=== PATIENT | female | born 1950 | race Caucasian/White ===

== ENCOUNTER → 2023-06-21 | Outpatient (CLI) | payer MEDICARE ==
[2023-06-21 12:05] LABS: Basophils # (A) 0.1 k/uL (0-0.2); Basophils % (A) 1 %; Eosinophils # (A) 0.1 k/uL (0-0.7); Eosinophils % (A) 2 %; HCT 41.2 % (34.0-46.0); HGB 13.7 gm/dL (11.4-16.0); Lymphocytes # (A) 1.3 k/uL (1.0-4.8); Lymphocytes % (A) 23 %; MCH 31.5 pg (25.0-35.0); MCHC 33.2 g/dL (31.0-37.0); MCV 94.8 fL (80.0-100.0); Mean Platelet Volume 8.1; Monocytes # (A) 0.5 k/uL (0-1.0); Monocytes % (A) 8 %; Neutrophils # (A) 3.6 k/uL (1.3-7.7); Neutrophils % (A) 64 %; Platelet Count 210 k/uL (150-450); RBC 4.34 m/uL (3.80-5.40); WBC 5.7 k/uL (3.8-10.6)
[2023-06-21 15:35] LABS: Blood Urea Nitrogen 20.4 mg/dL (9.0-27.0); Calcium 9.8 mg/dL (8.7-10.3); Carbon Dioxide 26.8 mmol/L (21.6-31.8); Chloride 101 mmol/L (96-109); Glucose 88 mg/dL (70-110); Potassium 4.2 mmol/L (3.5-5.5); Sodium 139 mmol/L (135-145)
== END | disposition home or self-care (01) ==
LOC: LABPAT 09:25
PROVIDERS: ATTEND Internal Medicine
DX: Z01.812 Encounter for preprocedural laboratory examination (principal)
CPT/HCPCS: 80048; 85025; 85610; 85730

== ENCOUNTER → 2023-12-24 | Outpatient (CLI) | payer MEDICARE ==
[2023-12-24 14:27] LABS: Basophils # (A) 0.06 X 10*3/uL (0.00-0.10); Basophils % (A) 0.9 %; Eosinophils # (A) 0.15 X 10*3/uL (0.04-0.35); Eosinophils % (A) 2.2 %; HGB 14.5 g/dL (12.0-15.0); Lymphocytes # (A) 2.06 X 10*3/uL (0.90-5.00); Lymphocytes % (A) 30.8 %; MCH 30.3 pg (27.0-32.0); MCV 91.9 FL (80.0-97.0); Mean Platelet Volume 10.5 FL (9.5-12.2); Monocytes # (A) 0.57 X 10*3/uL (0.20-1.00); Monocytes % (A) 8.5 %; NRBC Per 100 WBC 0 X 10*3/uL (0.00-0.01); Neutrophils # (A) 3.81 X 10*3/uL (1.80-7.70); Neutrophils % (A) 57.2 %; Platelet Count 247 X 10*3/uL (140-440); RBC 4.79 X 10*6/uL (4.10-5.20); WBC 6.68 X 10*3/uL (4.50-10.00)
[2023-12-24 14:36] LABS: BUN/Creat Ratio 26.14 Ratio (12.00-20.00); Blood Urea Nitrogen 18.3 mg/dL (9.0-27.0); Carbon Dioxide 26.8 mmol/L (21.6-31.8); Chloride 103 mmol/L (96-109); Glucose 95 mg/dL (70-110); Sodium 142 mmol/L (135-145)
[2023-12-24 14:37] LABS: Calcium 10.4 mg/dL (8.7-10.3)
[2023-12-24 15:29] LABS: INR 1.01 sec (0.93-1.11); Prothrombin Time 10.9 sec (9.9-11.9)
== END | disposition home or self-care (01) ==
LOC: LABPAT 08:22
PROVIDERS: ATTEND Orthopaedic Surgery
DX: M17.12 Unilateral primary osteoarthritis, left knee (principal); Z01.818 Encounter for other preprocedural examination
CPT/HCPCS: 80048; 85025; 85610; 87070

== ENCOUNTER 2024-01-14 10:36 | Day surgery (SDC) | payer MEDICARE ==
--- NOTE | 2024-01-13 11:32 | HP ---
HISTORY AND PHYSICAL DATE OF SCHEDULED SURGERY: 01/14/2024. HISTORY OF PRESENT ILLNESS: Tonia Wheeler is a 73-year-old patient seen with symptomatic left knee osteoarthritis. We discussed options regarding treatment. She elected to proceed with left total knee arthroplasty. Consent regarding the procedure was obtained. Preoperative cardiac clearance was provided. The patient's primary care physician is . PAST MEDICAL HISTORY: Cardiovascular disease, hypertension, hyperlipidemia. PAST SURGICAL HISTORY: Right total hip arthroplasty. DAILY MEDICATIONS: 1. Simvastatin. 2. Aleve. 3. Lisinopril/hydrochlorothiazide. 4. Metoprolol. ALLERGIES: None. SOCIAL HISTORY: She denies tobacco use. PHYSICAL EVALUATION OF THE LEFT KNEE: Range of motion is negative 3 to 100 degrees. She has a large effusion. Tenderness along the medial joint line. Crepitance along the medial patellofemoral compartments with range of motion. Pain with patellofemoral compression. Ligaments stable. Hip rotation without pain. Distal neurovascular exam is intact. IMAGING STUDIES: Radiographs of the left knee revealed severe osteoarthritic changes. IMPRESSION: 1. Left knee osteoarthritis. 2. Hypertension. 3. Hyperlipidemia. 4. Cardiovascular disease. PLAN: Left total knee arthroplasty. MMODL / IJN: [id number] /
[~2024-01-14 10:36] MED LIST: HYDROmorphone 0.5 MG/0.5 ML SYRINGE IVP PRN; LIDOCAINE 1% (10MG/ML) FOR IV START INTRADERMA PRN; MIDAZOLAM 2 MG/2 ML VIAL IV PRN; TRANEXAMIC 1,000 MG/100ML-NACL 1,000 MG in SALINE 1 100ML.BAG IVPB PRN
[2024-01-14] MEDS: LACTATED RINGERS 1,000 ML IV ONE ×2 (11:36→14:14)
[2024-01-14] MEDS: ACETAMINOPHEN TAB 500 MG TAB PO PRN (11:38)
[2024-01-14] MEDS: MELOXICAM 7.5 MG TAB PO PRN (11:39)
[2024-01-14] MEDS: DEXAMETHASONE SOD PHOSPHATE 4 MG/ML 1 ML VIAL IV ONE (11:40)
[2024-01-14] MEDS: LACTATED RINGERS 1,000 ML IV SCH (11:40)
[2024-01-14] MEDS: ONDANSETRON 4 MG/2 ML VIAL IVP ONE (11:40)
[2024-01-14] MEDS: MIDAZOLAM 2 MG/2 ML VIAL IVP ONE (12:39)
[2024-01-14] MEDS: ceFAZolin 1,000 MG in SODIUM CHLORIDE 0.9% 1,000 ML IRRIGATION ONE (13:34)
[2024-01-14] MEDS ORDERED: HYDROmorphone 0.5 MG/0.5 ML SYRINGE IVP PRN ×3 (14:53)
[2024-01-14] MEDS ORDERED: NALOXONE 0.4 MG/ML 1 ML VIAL IV PRN (14:53)
--- NOTE | 2024-01-14 14:53 | P.OP ---
Date of Procedure: 01/14/24 Preoperative Diagnosis: Left knee osteoarthritis Postoperative Diagnosis: Left knee osteoarthritis Procedure(s) Performed: Left total knee arthroplasty Implants: 1. DePuy attune size 6 narrow left cruciate retaining cemented femur 2. DePuy attune size 6 fixed-bearing cemented tibial baseplate 3. DePuy attune size 6 fixed-bearing cruciate retaining 10 mm polyethylene tibial insert 4. DePuy attune 35 mm all polyethylene cemented patella Anesthesia: regional (Adductor canal catheter, iPAQ block), spinal Surgeon: Barry Mcneil Carbon Plant Grinder #1: Sloan Garcia Estimated Blood Loss (ml): 50 Pathology: none sent Condition: stable Disposition: PACU Indications for Procedure: 73-year-old patient seen with symptomatic left knee osteoarthritis. After having treatment options discussed, she elected to proceed with total knee arthroplasty. Operative Findings: See description of procedure Description of Procedure: Patient was taken to the operative suite after having an adductor canal catheter placed by the department of anesthesia. Patient underwent a spinal anesthetic by the department of anesthesia. Patient was given preoperative IV intake antibiotics and TXA. A well-padded tourniquet was placed about the left lower extremity. The lower extremity was then prepped and draped in the normal sterile orthopedic fashion. The extremity was elevated, a tourniquet was insufflated to 300. A standard anterior incision was made sharply through skin. Dissection was taken down through the subcutaneous soft tissues down to the extensor mechanism. A medial arthrotomy was performed, patella was everted and knee was flexed. There was advanced osteoarthritis noted. I introduced my distal intramedullary femoral drill. I then introduced the distal femoral cutt ing jig. Cristo SPEARS secured the cutting jig with 2 pins. I held retractors in position while Cristo SPEARS performed the distal femoral resection through the guide area we now removed her distal femoral cutting guide. We now placed our 4-in-1 femoral cutting block and positioned and it was secured with 2 pins by Cristo SPEARS while I held the block in position. The distal femoral finishing was now completed. A proximal tibial cutting guide was positioned. I held the guide in the appropriate position with both hands well Cristo SPEARS inserted stabilizing pins into the guide. Proximal tibial cut was made. We now placed a trial femoral component into position, along with an appropriate size tibial tray and insert. We now took the knee through range of motion and had full extension good flexion and good overall soft tissue balance noted. The patella was everted and stabilized with 2 towel clips held by Cristo SPEARS while I performed a flush with patellar quad tendon utilizing a fresh sawblade. We templated the patella, appropriate drill holes were made. An appropriate trial patella was positioned, knee was taken through full range of motion with the patella tracking very nicely. The trial patella was removed. Drill holes were made through the femoral component. All trial components were removed after marking off the appropriate rotation of the tibia. Retractors were now positioned along the proximal tibia. An appropriate keel punch was made with the appropriate size tibial guide by myself on Cristo SPEARS assisted by holding retractors. At this point appropriate size implants were chosen and opened. The joint was irrigated copiously with pulse lavage mechanical irrigation. The wound was irrigated with pulse lavage mechanical irrigation. We mixed antibiotic methylmethacrylate. We placed the knee into flexion. We placed multiple retractors assisted by Cristo SPEARS to expose the proximal tibia. Once the methyl methacrylate was ready, the tibial component was cemented into place removing any excess methylmethacrylate form by both myself and Cristo SPEARS. The femoral component was cemented into place removing the removing any excess methylmethacrylate performed by both myself and Cristo SPEARS. We then inserted the appropriate size polyethylene tibial insert. We made sure that it was locked into position. We took the knee into full extension, and then back in a flexion making sure we had removed any excess methylmethacrylate. The patellar component was then cemented down and secured with clamp. Excess methylmethacrylate removed. We kept the knee in full extension, patellar clamp in position until methylmethacrylate had hardened. Once it had hardened the patellar clamp was removed. The knee was taken through full range of motion. The patella tracked nicely. There was good soft tissue balancing. The tourniquet was now released. Additional hemostasis was achieved via electrocautery. A second gram of TXA was given. The wound again was irrigated with pulse lavage mechanical irrigation. The extensor mechanism was repaired with Ethibond suture. We checked the repair with range of motion and it was stable. The subcutaneous soft tissues were repaired with Vicryl in layers. The skin was approximated with pernio/Dermabond. Sterile dressings were applied followed by loose web roll and Brian bandage. The patient was transferred to a bed, and taken to recovery in stable and satisfactory condition. Cristo SPEARS assisted with this complex procedure.
[2024-01-14] MEDS: ROPIVACAINE 1,100 MG, SODIUM CHLORIDE 0.9% 500 ML 330 ML, EMPTY PAIN BALL 1 EACH MISCELLANE PRN (15:37)
--- NOTE | 2024-01-14 17:00 | XR ---
EXAMINATION TYPE: XR knee limited LT DATE OF EXAM: 01/14/2024 COMPARISON: None HISTORY: Postknee replacement TECHNIQUE: 2 view left knee FINDINGS: Tibial femoral component place. Postsurgical soft tissue changes are present. No acute frac tures are evident. IMPRESSION: 1. No acute fractures post knee replacement
[2024-01-14] MEDS: ONDANSETRON 4 MG/2 ML VIAL IVP PRN (20:01)
[2024-01-14] MEDS: SENNOSIDES-DOCUSATE SODIUM 1 EACH TAB PO SCH (21:06)
[2024-01-14] MEDS: ATORVASTATIN 10 MG TAB PO SCH (21:06)
[2024-01-14] MEDS: METOPROLOL SUCCINATE (ER) 25 MG TAB.ER.24H PO SCH (21:06)
[2024-01-14] MEDS: CALCIUM CARBONATE 500 MG CHEWABLE PO SCH (21:06)
[2024-01-14] MEDS: SODIUM CHLORIDE 0.9% 1,000 ML IV SCH (21:07)
[2024-01-14] MEDS: HYDROcodone/APAP 5-325MG 1 EACH TAB PO PRN (23:17)
[2024-01-15 02:46] VITALS: PULSE 60; RESP 18
[2024-01-15] MEDS: ENOXAPARIN 30 MG/0.3 ML SYRINGE SQ SCH (06:31)
[2024-01-15] MEDS: HYDROcodone/APAP 5-325MG 1 EACH TAB PO PRN (06:31)
[2024-01-15 07:31] VITALS: BP 124/69; TEMP 98.2
--- NOTE | 2024-01-15 07:33 | P.ANPRN ---
Procedure Note - Anesthesia - Nerve Block Performed Left Adductor Canal Infusion Time Out Performed: Yes Date of Procedure: 01/14/24 Procedure Start Time: 12:39 Procedure Stop Time: 12:48 Location of Patient: PreOp Indication: Acute Post-Operative Pain, Requested by Surgeon Sedation Type: Sedate with meaningful contact maintained Preparation: Sterile Prep, Sterile Dressing Position: Supine Catheter: Indwelling Needle Types: Pajunk Needle Gauge: 21 Ultrasound used to visualize needle placement: Yes Ultrasound used to observe medication spread: Yes Blood Aspirated: No Pain Paresthesia on Injection Noted: No Resistance on Injection: Normal Image Stored and Saved: Yes Events: Uneventful and Well Tolerated (Ropivacaine 0.5% 20 cc plus dexamethasone 4 mg)
--- NOTE | 2024-01-15 07:35 | P.ANPRN ---
Procedure Note - Anesthesia - Nerve Block Performed Left iPack Single Time Out Performed: Yes Date of Procedure: 01/14/24 Procedure Start Time: 12:49 Procedure Stop Time: 12:52 Location of Patient: PreOp Indication: Acute Post-Operative Pain, Requested by Surgeon Sedation Type: Sedate with meaningful contact maintained Preparation: Sterile Prep Position: Supine Needle Types: Pajunk Needle Gauge: 21 Ultrasound used to visualize needle placement: Yes Ultrasound used to observe medication spread: Yes Blood Aspirated: No Pain Paresthesia on Injection Noted: No Resistance on Injection: Normal Image Stored and Saved: Yes Events: Uneventful and Well Tolerated (Ropivacaine .5% 25 cc plus dexamethasone 4 mg)
[2024-01-15 08:30] LABS: Basophils # (A) 0.02 X 10*3/uL (0.00-0.10); Basophils % (A) 0.1 %; Eosinophils # (A) 0 X 10*3/uL (0.04-0.35); Eosinophils % (A) 0 %; HCT 36.4 % (37.2-46.3); HGB 12.4 g/dL (12.0-15.0); Lymphocytes # (A) 1.04 X 10*3/uL (0.90-5.00); Lymphocytes % (A) 7.5 %; MCH 30.8 pg (27.0-32.0); MCHC 34.1 g/dL (32.0-37.0); MCV 90.3 FL (80.0-97.0); Mean Platelet Volume 10.4 FL (9.5-12.2); Monocytes # (A) 1.19 X 10*3/uL (0.20-1.00); Monocytes % (A) 8.6 %; NRBC Per 100 WBC 0 X 10*3/uL (0.00-0.01); Neutrophils # (A) 11.56 X 10*3/uL (1.80-7.70); Neutrophils % (A) 83.4 %; Platelet Count 224 X 10*3/uL (140-440); RBC 4.03 X 10*6/uL (4.10-5.20); WBC 13.86 X 10*3/uL (4.50-10.00)
[2024-01-15] MEDS ORDERED: [UNRECOGNIZED DRUG - OTHER] PO SCH (09:00)
[2024-01-15] MEDS ORDERED: MULTIVIT WITH CALCIUM IRON MIN PO SCH (09:00)
[2024-01-15] MEDS: LISINOPRIL-HCTZ 20-12.5 MG 1 EACH TAB PO SCH (09:44)
--- NOTE | 2024-01-15 10:27 | P.PN ---
Subjective Progress Note Date: 01/15/24 Principal diagnosis: Status post left total knee arthroplasty Patient evaluated at bedside, she is resting comfortably. Patient's pain is well-controlled. She has been urinating with no issues. She has been ambulating with physical therapy with no issues. She denies headaches, lightheadedness, chest pain or shortness of breath Objective - Vital Signs Vital signs: Vital Signs Temp 98.2 F 01/15/24 09:00 Pulse 60 01/15/24 09:00 Resp 18 01/15/24 09:00 BP 124/69 01/15/24 09:00 Pulse Ox 96 01/15/24 09:00 FiO2 Intake & Output 01/14/24 01/15/24 01/15/24 18:59 06:59 18:59 Intake Total 1901 Output Total 50 Balance 1851 Weight 69.4 kg Intake: IV 1900 Output: Estimated Blood Loss 50 Other: Voiding Method Toilet # Voids 0 3 - Exam Left lower extremity: Incision is clean, dry, and intact. The exofin fusion tap foam dressing is in good condition. There is minimal soft tissue swelling and ecchymosis surrounding the medial and lateral aspects of the incision. Calf is soft, no te nderness with palpation. Plantar flexion, dorsiflexion, EHL, FHL are intact. Sensory exam to light touch throughout the extremity is intact, dorsal pedis pulses 2+. - Labs CBC & Chem 7: 01/15/24 03:21 Labs: Abnormal Lab Results - Last 24 Hours (Table) 01/15/24 Range/Units 03:21 WBC 13.86 H (4.50-10.00) X 10*3/uL RBC 4.03 L (4.10-5.20) X 10*6/uL Hct 36.4 L (37.2-46.3) % Immature Gran # 0.05 H (0.00-0.04) X 10*3/uL Neutrophils # 11.56 H (1.80-7.70) X 10*3/uL Monocytes # 1.19 H (0.20-1.00) X 10*3/uL Eosinophils # 0 L (0.04-0.35) X 10*3/uL Assessment and Plan Assessment: Postoperative day #1 status post left total knee arthroplasty Plan: Pain control, plan for discharge home on oral medication DVT prophylaxis, aspirin 81 mg twice a day for 30 days Wound care instructions were discussed, this to include bandage instructions, showering instructions and icing and elevating Home PT/OT Medical recommendations appreciated Discharge planning: Plan for discharge home today Time with Patient: Less than 30
--- NOTE | 2024-01-15 12:25 | P.PN ---
Progress Note - Text 01/15/24 622am 73-year-old female status post total knee replacement. Patient has an On-Q pump for postop pain control with a solution running at 8 cc an hour with a VAS of 2. Dressing clean dry and intact plan to continue On-Q pump infusion
[2024-01-15] MEDS: MULTIVITAMINS, THERA 1 EACH TAB PO SCH (12:39)
--- NOTE | 2024-01-15 14:40 | P.CONS ---
History of Present Illness - Reason for Consult Consult date: 01/15/24 medical management, status post left knee arthroplasty - History of Present Illness This is a pleasant 73-year-old female who was admitted under orthopedic services and is postop left total knee arthroplasty. Patient is postop day 1 reports has been up and walking and working with physical therapy did well although is h aving some localized pain to the left knee and some minimal swelling noted of the left lower extremity. Patient does have an ice pack and currently elevated while sitting in the recliner. Patient reports she follows with Dr. Siegel in the outpatient setting with a past medical history of hyperlipidemia, hypertension, osteoarthritis, breast cancer as well as permanent pacemaker. Patient was evaluated by cannon fire direction specialist for presurgical clearance. On exam patient is currently sitting up in the chair on room air with no reports of chest pain or shortness of breath. Surgical site is clean and dry and intact with no shadowing or drainage noted on the dressing. Some minimal swelling as noted previously of the left lower extremity although nonpitting. Patient reports has been tolerating diet reports to passing gas with no bowel movement as of yet. Patient is working on discharge home and has support at the home with her . Patient is medically stable once cleared by orthopedics. White count was mildly elevated likely reactive and recommend outpatient follow- up in the next 1 to 2 weeks for repeat labs. Instructed patient to continue with incentive spirometer use at least 10 times every hour while awake and monitor for any postoperative shortness of breath, fevers, surgical site infections. Patient instructed to follow-up with orthopedics as scheduled. REVIEW OF SYSTEMS: CONSTITUTIONAL: No fever, no malaise, no fatigue. HEENT: No recent visual problems or hearing problems. Denied any sore throat. CARDIOVASCULAR: No chest pain, orthopnea, PND, no palpitations, no syncope. PULMONARY: No shortness of breath, no cough, no hemoptysis. GASTROINTESTINAL: No diarrhea, no nausea, no vomiting, no abdominal pain. NEUROLOGICAL: No headaches, no weakness, no numbness. HEMATOLOGICAL: Denies any bleeding or petechiae. GENITOURINARY: Denies any burning micturition, frequency, or urgency. MUSCULOSKELETAL/RHEUMATOLOGICAL: Reports left knee joint pain, swelling, or any muscle pain. Reports of some left knee discomfort ENDOCRINE: Denies any polyuria or polydipsia. The rest of the 14-point review of systems is negative. PHYSICAL EXAMINATION: GENERAL: The patient is alert and oriented x3, not in any acute distress. Well developed, well nourished. HEENT: Pupils are round and equally reacting to light. EOMI. No scleral icterus. No conjunctival pallor. Normocephalic, atraumatic. No pharyngeal erythema. No thyromegaly. CARDIOVASCULAR: S1 and S2 present. No murmurs, rubs, or gallops. PULMONARY: Chest is clear to auscultation, no wheezing or crackles. ABDOMEN: Soft, nontender, nondistended, normoactive bowel sounds. No palpable organomegaly. MUSCULOSKELETAL: No joint swelling or deformity. EXTREMITIES: No cyanosis, clubbing, or pedal edema. Left knee dressing is dry and intact with minimal swelling noted around the knee and down the lower extre mity, nonpitting NEUROLOGICAL: Gross neurological examination did not reveal any focal deficits. SKIN: No rashes. Assessment: Status post left total knee arthroplasty Leukocytosis, likely reactive as patient is afebrile with no reports of chest pain or burning with urination History of osteoarthritis Hyperlipidemia Hypertension History of breast cancer with lumpectomy in 2000 History of permanent pacemaker in June 2023 GI prophylaxis DVT prophylaxis Full code Plan: Patient is seen and evaluated in postop day 1 has been up and working with physical therapy doing well although is reporting some increased pain and reports is due for a pain pill. Patient has not been using IV pain medications and has been adequate management with the [place] Continue stool softeners and bowel regimen as needed Home medications reviewed and resumed as appropriate Patient with incentive spirometer at the bedside encouraged the patient to continue using at least 10 times every hour while awake including taking home and continuing to use Recommend repeat CBC in the next 1 week in the outpatient setting to monitor white count as it was mildly elevated although feels is most likely reactive. Patient instructed to follow-up with primary care provider on discharge Patient is medically stable once cleared by orthopedics for discharge Thank you kindly for this consultation. We will continue to follow with orthopedics during hospitalization. The impression and plan of care has been dictated by Swathi Sanderson, Nurse Practitioner as directed. Dr. Johan MD I have performed a history and examination and MDM of this patient, discussed the same with the dictator, and agree with the dictator's assessment and plan as written ,documented as a scribe. Based on total visit time, I have performed more than 50% of the visit. Past Medical History Past Medical History: Cancer, Hyperlipidemia, Hypertension, Osteoarthritis (OA) Additional Past Medical History / Comment(s): breast ca in 2000. History of Any Multi-Drug Resistant Organisms: None Reported Past Surgical History: Appendectomy, Breast Surgery, Joint Replacement, Orthopedic Surgery, Pacemaker Additional Past Surgical History / Comment(s): L lumpectomy in 2000, R total hip. arthroscopy right knee Past Anesthesia/Blood Transfusion Reactions: No Reported Reaction Type of Cardiac Device: Permanent Pacemaker Device Placement Date:: 06/30 Past Psychological History: No Psychological Hx Reported Smoking Status: Never smoker Past Alcohol Use History: None Reported Past Drug Use History: None Reported - Past Family History Mother Family Medical History: Cancer Additional Family Medical History / Comment(s): Breast. Medications and Allergies Home Medications Medication Instructions Recorded Confirmed Type Calcium Carbonate [Calcium] 600 mg PO BID 12/14/15 01/08/24 History Lisinopril-Hctz 20-12.5 mg 1 tab PO DAILY 12/14/15 01/08/24 History [Zestoretic 20-12.5] Multivit with Calcium,Iron,Min 1 each PO DAILY 12/14/15 01/08/24 History [Women's Daily Multivitamin] Simvastatin [Zocor] 20 mg PO HS 12/14/15 01/08/24 History Metoprolol Succinate (ER) [Toprol 25 mg PO HS 01/08/24 01/08/24 History XL] Naproxen Sodium [Aleve] 220 mg PO BID PRN 01/08/24 01/08/24 History Aspirin [Adult Low Dose Aspirin EC] 81 mg PO BID #60 tab 01/15/24 Rx HYDROcodone/APAP 7.5-325MG [[place] 1 each PO Q6HR PRN #28 tab 01/15/24 Rx 7.5] Sennosides/Docusate Sodium 2 each PO DAILY PRN #30 tablet 01/15/24 Rx [Senna-S 8.6-50 mg Tablet] Allergies Allergy/AdvReac Type Severity Reaction Status Date / Time No Known Allergies Allergy Verified 01/14/24 11:12 Physical Exam Vitals: Vital Signs Temp Pulse Resp BP Pulse Ox 01/15/24 09:00 98.2 F 60 18 124/69 96 07/09/24 07:29 98.2 F 60 18 124/69 96 01/15/24 02:09 98.3 F 60 18 142/73 96 01/14/24 18:53 62 154/82 99 01/14/24 18:38 62 158/87 99 01/14/24 18:08 62 158/87 99 01/14/24 17:53 61 156/85 99 01/14/24 17:28 63 148/75 100 01/14/24 17:23 68 156/68 98 01/14/24 17:09 97.5 F L 64 17 162/89 98 01/14/24 16:45 97.6 F 69 16 159/77 99 01/14/24 16:30 66 16 160/74 100 01/14/24 16:15 65 14 145/71 99 01/14/24 16:00 69 14 145/79 99 01/14/24 15:45 97.5 F L 67 14 154/86 99 01/14/24 15:30 96.7 F L 72 14 168/72 100 01/14/24 15:15 95.9 F L 63 16 150/83 99 Intake and Output 01/14/24 01/15/24 01/15/24 22:59 06:59 14:59 Intake Total 350 Balance 350 Intake: IV 350 Other: Voiding Method Toilet # Voids 0 3 Weight 69.4 kg Results CBC & Chem 7: 01/15/24 03:21 Labs: Abnormal Lab Results - Last 24 Hours (Table) 01/15/24 Range/Units 03:21 WBC 13.86 H (4.50-10.00) X 10*3/uL RBC 4.03 L (4.10-5.20) X 10*6/uL Hct 36.4 L (37.2-46.3) % Immature Gran # 0.05 H (0.00-0.04) X 10*3/uL Neutrophils # 11.56 H (1.80-7.70) X 10*3/uL Monocytes # 1.19 H (0.20-1.00) X 10*3/uL Eosinophils # 0 L (0.04-0.35) X 10*3/uL
== END 2024-01-15 14:06 | disposition home health service (06) ==
LOC: OR 10:36 → 4SSUR 16:36 → OR 01-15 14:06
PROVIDERS: ATTEND Orthopaedic Surgery
DX: M17.12 Unilateral primary osteoarthritis, left knee (principal); G89.18 Other acute postprocedural pain; I10 Essential (primary) hypertension; E78.2 Mixed hyperlipidemia; I49.5 Sick sinus syndrome; I25.10 Atherosclerotic heart disease of native coronary artery without angina pectoris; Z95.0 Presence of cardiac pacemaker; Z79.899 Other long term (current) drug therapy; Z79.82 Long term (current) use of aspirin
CPT/HCPCS: 97161; 64999; 64448; 85025; 73560; 27447; C1776; C1713 ×2; C1751; J2250; J1100; J0690 ×3; J2405; J1650; J2795